=== PATIENT | female | born 1985 | race Caucasian/White ===

== ENCOUNTER 2016-10-20 16:48 | Emergency (ER) | payer OTHER ==
[~2016-10-20] VITALS: Ht 154.9 cm; Wt 76.1 kg
[2016-10-20 16:53] VITALS: TEMP 36.7; Ht 154.9 cm; Wt 76.1 kg
[2016-10-20] MEDS ORDERED: SODIUM CHLORIDE 0.9% 1000ML 1,000 ML IV STA (17:19)
--- NOTE | 2016-10-20 17:30 | EMERGENCY ROOM VISIT NOTE ---
History First contact with patient: 16:58 Chief Complaint: DIZZY Stated Complaint: PAIN IN RIGHT SIDE, LATE PERIOD, DIZZINESS Nursing Triage Summary: pt c/o dizziness. Neg preg at home. referred by PCP History of Present Illness The patient is a 31 year old female who presents to the Emergency Room with complaints of right lower quadrant abdominal pain. The patient states that for the past 6 days, she has had pain in the right lower quadrant radiating into the right upper back. The pain as dull and was intermittent initially, but is now constant. She rates the discomfort a 7/10. Patient states that her menstrual period is 33 days late. She is currently sexually active and does not use protection. She states she is not actively trying to get , but she is aware that without using protection she may get and is okay with this. She has taken multiple urine tests that home which were negative. She states that this morning, she had an episode of dizziness which concerned her. She called her primary care provider who told her to come here. She reports associated nausea, but no vomiting. She denies urinary symptoms, fevers/chills, abnormal vaginal discharge or changes in bowel movements. She reports she was seen by her primary care provider one month ago due to a late period a few months ago. At that time, she was diagnosed with a UTI despite not having any urinary symptoms. She denies any history of late period, ovarian cysts and endometriosis or previous pregnancies. She reports a prior cholecystectomy but no other abdominal surgeries. Review of Systems A complete 10 point review of systems was reviewed with the patient with pertinent positives and negatives as per history of present illness. All else were negative. Social History Smoking Status: Current Every Day Smoker Current/Historical Medications Scheduled Sulfa/Trimethoprim (Bactrim Ds 800MG/160MG), 1 TAB PO BID Allergies Uncoded Allergies: AMOXIL (Allergy, Unknown, hives, 10/20/16) Physical Exam Vital Signs Date Time Temp Pulse Resp B/P (MAP) Pulse Ox O2 Delivery O2 Flow Rate FiO2 10/20/16 21:22 62 18 120/77 98 10/20/16 19:44 58 18 119/78 97 Room Air 10/20/16 18:21 61 18 109/71 98 Room Air 10/20/16 17:31 71 10/20/16 16:53 36.7 76 20 145/90 95 Room Air Physical Exam VITALS: Vitals are noted on the nurse's note and reviewed by myself. Vital signs stable. GENERAL: This is a 31-year-old female, in no acute distress, nondiaphoretic, well-developed well-nourished. HEENT: Normocephalic. PERRLA. Mucous membranes moist. Neck is supple without nuchal rigidity. HEART: Regular rate and rhythm without murmurs gallops or rubs. LUNGS: Clear to auscultation bilaterally without wheezes, rales or rhonchi. ABDOMEN: Positive bowel sounds x 4. Soft, moderate tenderness of the right lower quadrant. No guarding or rebound tenderness. Negative Rovsing sign. NEURO: Patient was alert and oriented to person place and time. Medical Decision & Procedures ER Provider Diagnostic Interpretation: ULTRASOUND OF THE PELVIS IMPRESSION: No acute sonographic abnormality is identified in the pelvis noting nonvisualization of the left ovary. ULTRASOUND OF THE APPENDIX IMPRESSION: Nonvisualization of the appendix. Note that this does not exclude acute appendicitis. CT SCAN OF THE ABDOMEN AND PELVIS WITH IV CONTRAST IMPRESSION: There are no acute infectious or inflammatory findings in the abdomen or pelvis. Laboratory Results 10/20/16 17:30 Red Blood Count 4.82, Mean Corpuscular Volume 83.8, Mean Corpuscular Hemoglobin 29.3, Mean Corpuscular Hemoglobin Concent 34.9, Mean Platelet Volume 9.2, Neutrophils (%) (Auto) 62.7, Lymphocytes (%) (Auto) 29.9, Monocytes (%) (Auto) 6.0, Eosinophils (%) (Auto) 1.0, Basophils (%) (Auto) 0.2, Neutrophils # (Auto) 8.12, Lymphocytes # (Auto) 3.87, Monocytes # (Auto) 0.77, Eosinophils # (Auto) 0.13, Basophils # (Auto) 0.02 10/20/16 17:30 Test 10/20/16 17:02 10/20/16 17:30 Urine Color YELLOW Urine Appearance CLOUDY (CLEAR) Urine pH 6.0 (4.5-7.5) Urine Specific Colbert 1.022 (1.000-1.030) Urine Protein NEG (NEG) Urine Glucose (UA) NEG (NEG) Urine Ketones NEG (NEG) Urine Occult Blood NEG (NEG) Urine Nitrite NEG (NEG) Urine Bilirubin NEG (NEG) Urine Urobilinogen NEG (NEG) Urine Leukocyte Esterase MODERATE (NEG) Urine WBC (Auto) 10-30 /hpf (0-5) Urine RBC (Auto) 0-4 /hpf (0-4) Urine Hyaline Casts (Auto) 1-5 /lpf (0-5) Urine Epithelial Cells (Auto) >30 /lpf (0-5) Urine Bacteria (Auto) 2+ (NEG) Urine Yeast (Auto) (NONE PRSENT) White Blood Count 12.94 K/uL (4.8-10.8) Red Blood Count 4.82 M/uL (4.2-5.4) Hemoglobin 14.1 g/dL (12.0-16.0) Hematocrit 40.4 % (37-47) Mean Corpuscular Volume 83.8 fL (80-100) Mean Corpuscular Hemoglobin 29.3 pg (25-34) Mean Corpuscular Hemoglobin Concent 34.9 g/dl (32-36) Platelet Count 398 K/uL (130-400) Mean Platelet Volume 9.2 fL (7.4-10.4) Neutrophils (%) (Auto) 62.7 % Lymphocytes (%) (Auto) 29.9 % Monocytes (%) (Auto) 6.0 % Eosinophils (%) (Auto) 1.0 % Basophils (%) (Auto) 0.2 % Neutrophils # (Auto) 8.12 K/uL (1.4-6.5) Lymphocytes # (Auto) 3.87 K/uL (1.2-3.4) Monocytes # (Auto) 0.77 K/uL (0.11-0.59) Eosinophils # (Auto) 0.13 K/uL (0-0.5) Basophils # (Auto) 0.02 K/uL (0-0.2) RDW Standard Deviation 41.9 fL (36.4-46.3) RDW Coefficient of Variation 13.6 % (11.5-14.5) Immature Granulocyte % (Auto) 0.2 % Immature Granulocyte # (Auto) 0.03 K/uL (0.00-0.02) Anion Gap 8.0 mmol/L (3-11) Est Creatinine Clear Calc Drug Dose 110.6 ml/min Estimated GFR () 135.7 Estimated GFR (Non- 117.1 BUN/Creatinine Ratio 14.0 (10-20) Calcium Level 8.9 mg/dl (8.5-10.1) Total Bilirubin 0.3 mg/dl (0.2-1) Aspartate Amino Transf (AST/SGOT) 14 U/L (15-37) Alanine Aminotransferase (ALT/SGPT) 17 U/L (12-78) Alkaline Phosphatase 107 U/L (45-117) Total Protein 7.3 gm/dl (6.4-8.2) Albumin 3.6 gm/dl (3.4-5.0) Globulin 3.7 gm/dl (2.5-4.0) Albumin/Globulin Ratio 1.0 (0.9-2) Lipase 69 U/L (73-393) Human Chorionic Gonadotropin, Qual NEG (NEG) Date/Time Source Procedure Growth Status 10/20/16 17:02 Urine , Clean Catch Urine Culture - Final MORE THAN THREE TYPES OF ORGANISMS FL... Complete Medications Administered Medications (Trade) Dose Ordered Sig/Tameka Route Start Time Stop Time Status Last Admin Dose Admin Sodium Chloride 1,000 ml @ 999 mls/hr Q1H1M STAT IV 10/20/16 17:19 10/20/16 18:19 DC 10/20/16 17:30 999 MLS/HR Trimethoprim/ Sulfamethoxazole (Septra Ds 800/ 160MG Tab) 1 tab NOW STAT PO 10/20/16 21:06 10/20/16 21:07 DC 10/20/16 21:19 1 TAB Medical Decision Differential diagnosis includes ovarian cyst, ovarian torsion, appendicitis, urinary tract infection, kidney stone, pyelonephritis, among others. The patient is a 31-year-old female who presents today complaining of right lower quadrant abdominal pain. Labs revealed a mild leukocytosis. No concerning or electrolyte abnormalities. Ultrasound of the pelvis was unremarkable. Ultrasound of the appendix is not able to identify the appendix. Due to the patient's leukocytosis and right lower quadrant pain without obvious cause, I did recommend a CT scan. This was performed and showed no acute findings within the abdomen and pelvis. Urinalysis was suggestive of possible infection and the patient will be treated with Bactrim given her discomfort. She was recommended to follow-up with her primary care provider and may need a pelvic exam, although she has no symptoms of infection at this time. She was encouraged to return here if she has any worsening symptoms. She verbalized understanding of my assessment and treatment plan and was discharged home in good condition. The patient's case was reviewed with Dr. Banks, ED attending physician, who agreed with my assessment and treatment plan. Medication reconciliation: I attest that I have personally reviewed the patient 's current medication list. Blood pressure screening: Patient was found to have normal blood pressure on screening and does not require follow-up. Impression Primary Impression: RLQ abdominal pain Departure Information Dispostion Home / Self-Care Condition GOOD Prescriptions Sulfa/Trimethoprim (Bactrim Ds 800MG/160MG) Tab 1 TAB PO BID for 7 Days, #14 TAB Prov: Juliana Castillo .ELISE 10/20/16 Referrals Korina Velazquez PA-C (PCP) Patient Instructions My [facility] Additional Instructions You have been treated in the Emergency Department for your Abdominal Pain. Laboratory results and imaging studies have ruled out any emergent causes for your abdominal pain which would warrant admission or surgery. Bactrim as prescribed for a total of 7 days. For pain control, you can use the following [id number]-zvo-wajsdlc medicines (if >12 yo): - Regular strength (325mg/tab) Tylenol (acetaminophen) 2 tabs every 4-6 hours as needed. Do not exceed 12 tablets in a 24 hour period. Avoid taking more than 4 grams (4000 mg) of Tylenol per day. This includes any other sources of acetaminophen you may take on a regular basis. - Regular strength (200 mg/tab) Advil (ibuprofen) 1-2 tabs every 4-6 hours as needed. Do not exceed a dose of 3200 mg per day. Drink plenty of water and stay well hydrated. As with any trip to the Emergency Department, you should follow-up with your Primary Care Provider from today's visit. Return to the emergency department if your symptoms persist despite treatment plan outlined above or if the following symptoms occur: Worsening pain, vomiting , fevers, or any other new/concerning symptoms.
[2016-10-20 17:43] LABS: BASO % 0.2 %; BASO ABS # 0.02 K/uL (0-0.2); COMPLETE YES; HEMATOCRIT 40.4 % (37-47); IG% 0.2 %; LYMPH % 29.9 %; LYMPH ABS # 3.87 K/uL (1.2-3.4); MEAN CELL VOLUME 83.8 fL (80-100); MEAN CORPUSCULAR HEMOGLOBIN 29.3 pg (25-34); MEAN CORPUSCULAR HGB CONC 34.9 g/dl (32-36); MEAN PLATELET VOLUME 9.2 fL (7.4-10.4); NEUT % 62.7 %; PLATELET COUNT 398 K/uL (130-400); RED BLOOD COUNT 4.82 M/uL (4.2-5.4); WHITE BLOOD COUNT 12.94 K/uL (4.8-10.8)
[2016-10-20 17:50] LABS: URINE APPEARANCE CLOUDY (CLEAR); URINE BILIRUBIN NEG (NEG); URINE COLOR YELLOW; URINE EPITHELIAL CELL AUTO >30 /lpf (0-5); URINE NITRITE NEG (NEG); URINE SPECIFIC GRAVITY 1.022 (1.000-1.030); UROBILINOGEN NEG (NEG); ZZUR CULT IF INDIC CLEAN CATCH YES
[2016-10-20 17:51] LABS: MANUAL MICROSCOPIC REQUIRED? NO; REVIEW REQ? YES
[2016-10-20 18:01] LABS: CALCIUM 8.9 mg/dl (8.5-10.1); CREATININE 0.7 mg/dl (0.60-1.20); POTASSIUM 3.8 mmol/L (3.5-5.1)
[2016-10-20 18:34] LABS: PREG INTERNAL NEGATIVE QC NEG CLEAR BACKGROUND; PREG INTERNAL POSITIVE QC POS CONTROL LINE
--- NOTE | 2016-10-20 19:43 | DIAGNOSTIC IMAGING REPORT ---
ULTRASOUND OF THE APPENDIX CLINICAL HISTORY: Nausea. Right lower quadrant abdominal pain. COMPARISON STUDY: No priors. FINDINGS: Real-time, grayscale, and color flow sonography of the right lower quadrant was performed to assess for acute appendicitis. The appendix was not discretely visualized. No inflammatory changes or free fluid are seen in the right lower quadrant. No lymphadenopathy was seen. IMPRESSION: Nonvisualization of the appendix. Note that this does not exclude acute appendicitis. Electronically signed by: Kenny Ramirez M.D. 10/20/2016 7:42 PM Dictated Date/Time: 10/20/2016 7:42 PM
--- NOTE | 2016-10-20 19:48 | DIAGNOSTIC IMAGING REPORT ---
ULTRASOUND OF THE PELVIS CLINICAL HISTORY: Right pelvic pain. COMPARISON STUDY: No priors. TECHNIQUE: Real-time, grayscale, and color flow sonography of the pelvis is performed both transabdominally and endovaginally. Images are reviewed in the transverse and longitudinal planes. FINDINGS: Uterus: The uterus is normal in size and echotexture, measuring 6.4 x 2.7 x 3.4 cm. Endometrium: The endometrium is normal in appearance, and the endometrial stripe is normal in thickness measuring up to 0.4 cm. Ovaries: The right ovary is normal in size and morphology, measuring 2.8 x 1.7 x 2.0 cm. There are small right ovarian follicles. The left ovary was not visualized. Normal Doppler waveforms are shown within the right ovary. Pelvis: There is no free fluid in the cul-de-sac. No concerning adnexal lesion is seen. IMPRESSION: No acute sonographic abnormality is identified in the pelvis noting nonvisualization of the left ovary. Electronically signed by: Kenny Ramirez M.D. 10/20/2016 7:47 PM Dictated Date/Time: 10/20/2016 7:45 PM
[2016-10-20] MEDS ORDERED: OPTIRAY 320 IV PRN (20:00)
--- NOTE | 2016-10-20 20:41 | DIAGNOSTIC IMAGING REPORT ---
CT SCAN OF THE ABDOMEN AND PELVIS WITH IV CONTRAST CLINICAL HISTORY: Right lower quadrant abdominal pain. Nausea. COMPARISON STUDY: Pelvic ultrasound dated 10/20/2016. TECHNIQUE: Following the IV administration of 92 cc of Optiray 320, CT scan of the abdomen and pelvis is performed from the lung bases to the proximal femora. Images are reviewed in the axial, sagittal, and coronal planes. IV contrast was administered without complication. Automated dose control exposure was utilized. A dose lowering technique was utilized adhering to the principles of ALARA. CT DOSE: 427.10 mGy.cm FINDINGS: Lung bases: The heart is normal in size and without pericardial effusion. The lung bases are clear noting dependent atelectasis. Liver: The contrast-enhanced liver is normal in size, contour, and attenuation. There is no intrahepatic biliary ductal dilatation. The hepatic veins and portal veins are patent. Gallbladder: Surgically absent noting clips in the gallbladder fossa. Spleen: Normal in size and attenuation. Pancreas: Unremarkable. Adrenal glands: Unremarkable. Kidneys: The contrast enhanced kidneys are normal in size and without hydronephrosis. The kidneys enhance symmetrically. Abdominal vasculature: The abdominal aorta is normal in course and caliber. Bowel: The small bowel and colon are normal in course and caliber. The appendix is well-visualized and normal. Peritoneum: There is no intraperitoneal free air or abdominal ascites. There is a small fat-containing umbilical hernia. Lymphadenopathy: None. Pelvic viscera: The bladder, uterus, and adnexa are normal as visualized noting small ovarian follicles. Skeletal structures: No lytic or blastic lesions are seen. IMPRESSION: There are no acute infectious or inflammatory findings in the abdomen or pelvis. Electronically signed by: Kenny Ramirez M.D. 10/20/2016 8:40 PM Dictated Date/Time: 10/20/2016 8:30 PM
[2016-10-20] MEDS ORDERED: SULFAMETHOXAZOLE/TRIMETHOPRIM DS 800/160MG TAB PO STA (21:06)
[2016-10-20] MEDS ORDERED: SULF800T23 PO (21:11)
[2016-10-20 21:22] VITALS: BP 120/77; PULSE 62; O2SAT 98
== END 2016-10-20 21:22 | disposition home or self-care (01) ==
LOC: C.EDB 16:53
DX: R10.31 Right lower quadrant pain (principal); F17.200 Nicotine dependence, unspecified, uncomplicated; Z88.1 Allergy status to other antibiotic agents

== ENCOUNTER → 2017-07-19 | Outpatient (CLI) | payer OTHER ==
[2017-07-19 14:46] LABS: BASO % 0.2 %; BASO ABS # 0.03 K/uL (0-0.2); EOS % 0.8 %; HEMATOCRIT 39.3 % (37-47); HEMOGLOBIN 13.5 g/dL (12.0-16.0); IG# 0.03 K/uL (0.00-0.02); LYMPH ABS # 3.01 K/uL (1.2-3.4); MEAN CELL VOLUME 82.9 fL (80-100); MEAN CORPUSCULAR HEMOGLOBIN 28.5 pg (25-34); MEAN CORPUSCULAR HGB CONC 34.4 g/dl (32-36); MEAN PLATELET VOLUME 9.1 fL (7.4-10.4); MONO % 6.1 %; NEUT % 69.7 %; NEUT ABS # 9.09 K/uL (1.4-6.5); PLATELET COUNT 484 K/uL (130-400); RED CELL DISTRIBUTION WIDTH CV 14.4 % (11.5-14.5); RED CELL DISTRIBUTION WIDTH SD 43.9 fL (36.4-46.3); WHITE BLOOD COUNT 13.06 K/uL (4.8-10.8)
[2017-07-19 15:00] LABS: ALBUMIN 3.7 gm/dl (3.4-5.0); ALKALINE PHOSPHATASE 89 U/L (45-117); ALT/SGPT 20 U/L (12-78); AST/SGOT 14 U/L (15-37); BLOOD UREA NITROGEN 5 mg/dl (7-18); CARBON DIOXIDE 22 mmol/L (21-32); CREATININE 0.73 mg/dl (0.60-1.20); GLUCOSE 78 mg/dl (70-99); POTASSIUM 3.8 mmol/L (3.5-5.1); SODIUM 136 mmol/L (136-145); TOTAL PROTEIN 7.8 gm/dl (6.4-8.2)
== END | disposition home or self-care (01) ==
LOC: C.LAB1850 13:07
PROVIDERS: ATTEND Obstetrics & Gynecology
DX: O10.911 Unspecified pre-existing hypertension complicating pregnancy, first trimester (principal); Z3A.00 Weeks of gestation of pregnancy not specified

== ENCOUNTER → 2017-09-30 | Outpatient (CLI) | payer OTHER | END | disposition home or self-care (01) | LOC: C.LAB1850 16:58 | PROVIDERS: ATTEND Obstetrics & Gynecology | DX: Z34.02 Encounter for supervision of normal first pregnancy, second trimester (principal); R39.9 Unspecified symptoms and signs involving the genitourinary system; Z3A.00 Weeks of gestation of pregnancy not specified ==

== ENCOUNTER 2018-03-07 18:32 | Inpatient (IN) ==
[~2018-03-07 18:32] MED LIST: CEFAZOLIN 2,000 MG in SYRINGE 0 ML IV SCH
[2018-03-07] MEDS ORDERED: CITRIC ACID/SODIUM CITRATE 15 ML UDC PO SCH (19:00)
[2018-03-07] MEDS ORDERED: LACTATED RINGER'S 1,000 ML IV SCH ×2 (19:00→19:46)
--- NOTE | 2018-03-07 19:00 | History & Physical Report ---
Date of Service March 07, 2018 Assessment & Plan (1) with 38 completed weeks gestation: category one strip (2) Breech presentation: Plan c/s. r/b/se discussed including anesthesia, bleeding, transfusion, infection, poor wound healing, damage to surrounding structures, need for further surgery, heart attack, blood clot, stroke, injury to baby . Consent reviewed and signed. (3) Rupture of membranes with clear amniotic fluid: History of Present Illness Chief Complaint: leaking fluid Primary Care Provider: Korina Velazquez PA-C Patient is a 32yowf with iup at 38 6/7 weeks who was discovered to be breech at office visit, declined version. Patient notes onset of gross rom this evening. clear fluid. Has had some intermittent contractions today. No VB. labs--O+/ab-/ri/rprnr/hepb neg/hiv neg/gc/ct-/ gtt x2 nl/panorama nl/gbs neg Allergies Allergy/AdvReac Type Severity Reaction Status Date / Time AMOXIL Allergy Unknown hives Uncoded 03/02/18 13:58 Home Medications Home Medications Medication Instructions Recorded Confirmed Type PNV cmb#95-ferrous fumarate-FA 1 tab PO QAM 03/02/18 03/02/18 History [] ranitidine HCl [Zantac] 150 mg PO HS 03/02/18 03/02/18 History Patient History Medical History Anxiety Hypertension affecting GERD (gastroesophageal reflux disease) Surgical History History of cholecystectomy History of tooth extraction WISDOM TEETH EXTRACTION Social History Current Living Situation: Spouse Feels Safe at Home: Yes Smoking Status: Former smoker Tobacco Type: cigarettes Cigarettes per Day: QUIT 9 MONTHS, 1 PACK PER 4 DAYS Second Hand Exposure: No Hx Alcohol Use: No Hx Substance Use: No Beliefs That Will Affect Care: None Preferred Language: Hungarian Communication Ability: Effective OB History g1--current ACTIVITY MANAGER History none Review of Systems All systems reviewed & are unremarkable except as noted in HPI & below Physical Exam 2 Constitutional: WD/WN, vitals as above Gastrointestinal (Abdomen): soft, gravid , nt Genitourinary: sse--grossly ruptured, visually 1-2cm toco--q5min efm--140s with mod variability, accels present, no decels US--breech
[2018-03-07 19:13] LABS: Basophils # (auto) 0.02 K/uL (0-0.2); Basophils % (auto) 0.1 %; Eosinophils # (auto) 0.12 K/uL (0-0.5); Eosinophils % (auto) 0.9 %; Hematocrit (blood only) 36.8 % (37-47); Hemoglobin 12.4 g/dL (12.0-16.0); Immature Granulocytes # (auto) 0.03 K/uL (0.00-0.02); Immature Granulocytes % (auto) 0.2 %; Lymphocytes # (auto) 3.29 K/uL (1.2-3.4); Lymphocytes % (auto) 24.2 %; Mean Corpuscular Volume 83.8 fL (80-100); Mean Platelet Volume 9.6 fL (7.4-10.4); Monocytes # (auto) 0.92 K/uL (0.11-0.59); Monocytes % (auto) 6.8 %; Neutrophils # (auto) 9.23 K/uL (1.4-6.5); Neutrophils % (auto) 67.8 %; Platelet Count 482 K/uL (130-400); RDW Coefficient of Variation 14.6 % (11.5-14.5); RDW Standard Deviation 45.3 fL (36.4-46.3); Red Blood Count 4.39 M/uL (4.2-5.4); White Blood Count 13.61 K/uL (4.8-10.8)
--- NOTE | 2018-03-07 19:16 | Anesthesiology Consultation ---
Date of Service March 07, 2018 Assessment & Plan (1) Encounter for pre-operative examination: Chart Review Chart Review: Acceptable Risk for Surgery and Patient NOT seen in Pre Admission Testing Consults Requested none ASA ASA2 Proposed Anesthesia Anesthesia Type: Spinal Risk / Benefits Reviewed With: PT / POA / Parent / Guardian, Accepts Plan and Informed Consent Obtained NPO Date Last Intake of Fluids: 03/07/18 Time Last Intake of Fluids: 17:30 Date Last Intake of Solids: 03/07/18 Time Last Intake of Solids: 17:30 History Surgery Operation Date: 03/07/18 20:00 Proposed Procedures p Section in LD - Erika Hunt MD, FACOG Height/Weight Height: 5 ft 1 in Weight: 89.811 kg Allergies Allergy/AdvReac Type Severity Reaction Status Date / Time amoxicillin Allergy Hives Verified 03/07/18 19:10 Medications Home Medications Medication Instructions Recorded Confirmed Last Taken PNV cmb#95-ferrous fumarate-FA 1 tab PO QAM 03/02/18 03/02/18 Unknown [] ranitidine HCl [Zantac] 150 mg PO HS 03/02/18 03/02/18 Unknown Past Medical History Medical History Anxiety Hypertension affecting GERD (gastroesophageal reflux disease) Past Surgical History Surgical History History of cholecystectomy History of tooth extraction WISDOM TEETH EXTRACTION Past Anesthesia History No Hx of Anesthesia Complications History of PONV No Motion Sickness Screening History of Motion Sickness: No Social History Smoking Status: Former smoker tobacco type: cigarettes Smoking cigarettes per day: QUIT 9 MONTHS, 1 PACK PER 4 DAYS Hx Alcohol Use: No Hx Substance Use: No substance use type: does not use Exercise / Class Metabolic Activity II 4-5 Yardwork/Stairs/Walk up hill Negative for chest pain or shortness of breath. Positive for symptoms of active GERD. Physical Exam Constitutional not obese (Gravid uterus) ENMT Mouth: no TMJ abnormality and oral opening not small Thyromental Distance: > or= 3.5 Finger Breadths Mallampati Class: II Neck normal visual inspection; neck extension not limited Respiratory normal respiratory effort Auscultation: lungs clear to auscultation bilaterally Cardiovascular Rate/Rhythm: regular rate and regular rhythm Heart Sounds: no murmur Psychiatric Orientation: alert and oriented x 3
[2018-03-07 19:20] LABS: Mean Corpuscular Hgb Conc 33.7 g/dL (32-36)
[2018-03-07] MEDS ORDERED: fentaNYL citrate 100 MCG/2 ML VIAL ONE (19:30)
[2018-03-07] MEDS ORDERED: MoRPHine SULFATE PF 1 MG/ML 10 ML AMP/VIAL ONE (19:30)
[2018-03-07] MEDS ORDERED: OXYTOCIN 10 UNITS/ML VIAL ONE ×2 (19:38→20:23)
[2018-03-07] MEDS ORDERED: ONDANSETRON INJ 2 MG/ML 2 ML VIAL ONE (19:38)
[2018-03-07] MEDS ORDERED: KETOROLAC 30 MG/ML VIAL ONE (20:23)
--- NOTE | 2018-03-07 20:38 | Post Operative Brief Note ---
Immediate Post Op Note v1 Date of Surgery March 07, 2018 Pre & Post Diagnosis Operation Date: 03/07/18 20:00 Pre-Op Diagnosis: IUP at 38.6 weeks Breech presentation Rupture of membranes Post-Op Diagnosis: Same as pre op Delivery of live female child at 2011 Lower uterine transverse incision Procedure Operation Date: 03/07/18 20:00 Actual Procedures p Section in LD - Erika Hunt MD, FACOG Surgeon Erika Hunt MD, FACOG Bat Carrier Dr. Vargas Estimated Blood Loss 500 Findings Consistent with Post-Op Diagnosis Drains Mejias Catheter
[2018-03-07 20:48] LABS: Cord Venous Blood HCO3 26 mmol/L (18.4-26.8); Cord Venous Blood PCO2 49 mmHg (30.4-57.2); Cord Venous Blood PO2 17 mmHg (14.1-43.3); Cord Venous Blood pH 7.34 (7.20-7.44)
[2018-03-07 20:54] LABS: Base Excess Cord Arterial Bld -0.3 mEq/L (-9-1.8); CO2 Cord Arterial Blood 57 mmHg (39.1-73.5); HCO3 Cord Arterial Blood 28 mmol/L (19.7-28.5)
[2018-03-07 20:55] LABS: O2 Saturation Cord Venous Bld < 60.0 % (<68)
[2018-03-07] MEDS ORDERED: DiphenhydrAMINE HCL 50 MG/ML VIAL ONE (20:57)
[2018-03-07] MEDS ORDERED: NALOXONE HCL 0.4 MG/1 ML VIAL/CARP IV PRN (21:00)
[2018-03-07] MEDS ORDERED: ONDANSETRON INJ 2 MG/ML 2 ML VIAL IV PRN (21:00)
[2018-03-07] MEDS ORDERED: HYDROmorphone INJ 0.5 MG/0.5 ML SYR IV PRN (21:00)
[2018-03-07] MEDS ORDERED: SODIUM CHLORIDE 0.9% 1000ML 1,000 ML IV SCH (21:00)
[2018-03-07] MEDS ORDERED: DiphenhydrAMINE HCL 50 MG/ML VIAL IV PRN (21:00)
[2018-03-07] MEDS ORDERED: ePHEDrine sulfate 50 MG/ML AMP IV PRN (21:00)
[2018-03-07] MEDS ORDERED: NALBUPHINE HCL INJ 10 MG/ML AMP IV PRN (21:00)
[2018-03-07] MEDS ORDERED: NO NARCOTICS OR SEDATIVES SCH (21:00)
[2018-03-07] MEDS ORDERED: NALOXONE HCL 1 MG in SODIUM CHLORIDE 0.9% 1000ML 1,000 ML IV PRN (21:00)
[2018-03-07] MEDS ORDERED: MoRPHine SULFATE PF 1 MG/ML 10 ML AMP/VIAL INT SPINAL ONE (21:00)
[2018-03-07] MEDS ORDERED: LACTATED RINGER'S 500 ML IV PRN (21:00)
[2018-03-07] MEDS ORDERED: DC INTRASPINAL MORPHINE SCH (21:00)
[2018-03-07] MEDS ORDERED: NALOXONE HCL 0.08 MG in SYRINGE 1.8 ML IV PRN (21:00)
--- NOTE | 2018-03-07 21:49 | Anesthesiology Progress Note ---
Date of Service March 07, 2018 Anesthesia Post Procedure Vital Signs Vital Signs: Temp Pulse Resp BP Pulse Ox 03/07/18 21:45 82 96 03/07/18 21:40 89 92 03/07/18 21:39 79 138/89 03/07/18 21:35 77 98 03/07/18 21:30 84 100 03/07/18 21:29 94 H 18 154/90 H 03/07/18 21:26 97 H 86 L 03/07/18 21:25 94 H 90 03/07/18 21:22 91 H 18 145/80 H 03/07/18 21:21 89 86 L 03/07/18 21:20 89 88 L 03/07/18 21:15 74 98 03/07/18 21:10 74 18 135/60 99 03/07/18 21:05 88 98 03/07/18 21:02 82 87 L 03/07/18 21:01 78 18 135/64 03/07/18 21:00 83 100 03/07/18 20:57 83 85 L 03/07/18 20:55 82 97 03/07/18 20:51 82 92 03/07/18 20:50 84 99 03/07/18 20:48 36.3 C L 79 18 127/74 03/07/18 19:21 36.8 C 80 16 134/91 Notes Mental Status: alert / awake / arousable and participated in evaluation Nausea / Vomiting: adequately controlled Pain: adequately controlled Airway Patency, RR, SpO2: stable & adequate BP & HR: stable & adequate Hydration State: stable & adequate Neuraxial Anesthesia: was administered and sensory block is resolving Anesthetic Complications: no major complications apparent
[2018-03-07] MEDS ORDERED: ACETAMINOPHEN 1,000 MG/100 ML VIAL IV SCH (22:00)
[2018-03-07] MEDS ORDERED: PROMETHAZINE HCL 25 MG in SODIUM CHLORIDE 0.9% 50 ML IV PRN (22:55)
[2018-03-07] MEDS ORDERED: HYDROCORTISONE ACETATE 25 MG SUPP PR PRN (22:55)
[2018-03-07] MEDS ORDERED: MAGNESIUM HYDROXIDE SUSP 30 ML UDC PO PRN (22:55)
[2018-03-07] MEDS ORDERED: SUPERCREAM 0.870% 15 GM JAR EXT PRN (22:55)
[2018-03-07] MEDS ORDERED: DIPHTHERIA/TETANUS/PERTUSSIS 0.5 ML SYR/VIAL IM ONE (22:55)
[2018-03-07] MEDS ORDERED: SENNA 8.6 MG TAB PO PRN (22:55)
[2018-03-07] MEDS ORDERED: BENZOCAINE 20% AER SPR 82.5 GM CAN EXT PRN (22:55)
[2018-03-07] MEDS ORDERED: OXYTOCIN 20 UNITS in LACTATED RINGER'S 1,000 ML IV SCH (22:55)
--- NOTE | 2018-03-08 01:17 | Operative Report ---
DATE OF OPERATION: 03/07/2018 PREOPERATIVE DIAGNOSES: 1. Intrauterine at 38 and 6/7 weeks. 2. Spontaneous rupture of membranes. 3. Breech presentation. POSTOPERATIVE DIAGNOSES: 1. Intrauterine at 38 and 6/7 weeks. 2. Spontaneous rupture of membranes. 3. Breech presentation. PROCEDURE: Primary lower transverse section. SURGEON: Erika Hunt MD NATURAL FABRICATOR: Cheri Vargas MD ANESTHESIA: Spinal. ESTIMATED BLOOD LOSS: 500 mL FLUIDS: 1300 mL URINE OUTPUT: 300 mL clear yellow urine draining from the bladder at the end of procedures. INDICATIONS: The patient is a 1, para 0 with a known breech presentation, scheduled for section on 03/10/2018 who presents grossly ruptured and persistent breech presentation. FINDINGS: Sacrum anterior eduarda breech presentation, Apgars pending. Normal uterus, tubes, and ovaries were noted bilaterally. COMPLICATIONS: None. DRAINS: Mejias. DISPOSITION: To recovery room in stable condition. DESCRIPTION OF PROCEDURE: The patient was taken to the operating room where she was identified verbally and by bracelet. She was seated on the operating table, where spinal anesthetic was placed. She was then placed in dorsal supine position with a leftward tilt. Mejias catheter was placed. She was prepped and draped in normal sterile fashion. Anesthetic was tested and found to be adequate. Time-out was held, identifying correct patient and procedure, positioning, preoperative antibiotics. There were no concerns. A Pfannenstiel skin incision was made with a knife, taken down to the underlying layer of fascia with the knife. Bleeding was attended to with Bovie electrocautery. The fascia was incised with cautery and taken out laterally with scissors. The superior edge of the fascial incision was grasped, elevated, and the underlying layer of rectus muscle was taken off bluntly and with scissors. In a similar fashion, the inferior edge of the fascial incision was grasped, elevated and the underlying layer of rectus muscle was taken off bluntly and with scissors. The muscles were bluntly in the midline. The peritoneum was entered bluntly. It was taken superiorly and inferiorly with good visualization of the bladder using scissors and the incision was stretched, the bladder blade was placed. The vesicouterine peritoneum was grasped with a snap, entered with scissors, taken out laterally with scissors and the bladder flap was created digitally. The bladder blade was replaced. Hysterotomy incision was scored with a knife. The uterus was entered with a snap and the incision was stretched with the shrimp peeling machine operator's fingers. A female genitalia were noted in the incision, confirming eduarda breech presentation, sacrum posterior. An shrimp peeling machine operator's hand was reached into the uterus about buttocks, where elevated atraumatically into the uterine incision using fundal pressure, the breech was delivered. The legs were delivered. The fetus was rotated the left and right arm were swept and the head was delivered using fundal pressure and Uulcocdpa-[id number]-Jcfq maneuver. The was placed on the operating field. The nose and mouth were bulb suctioned. The cord was clamped and cut. The infant was taken off to waiting pediatricians for drying and attention. Cord blood and segment were obtained. Placenta was manually extracted. The uterus was exteriorized and cleared of all clot and debris with moistened laparotomy sponges. The hysterotomy incision was repaired in 2 layers, the first in a running locked layer, the second in an imbricating layer of 0 Vicryl. The posterior cul-de-sac was then irrigated and cleared of all clot and debris. The hysterotomy incision was again inspected and found to be hemostatic. The uterus was reanteriorized. The hysterotomy incision was inspected again and oozing area on the right was attended to with a [id number]-he-zoqmb suture and then hemostasis was noted to be excellent. The muscles were reapproximated in the midline using interrupted stitches of 0 Vicryl. The fascia was reapproximated starting in the corners and meeting in the midline. Subcuticular tissue was copiously irrigated with warm normal saline and the skin was closed with subcuticular stitch of 4-0 Vicryl. All sponge, lap, needle counts were correct x2. The patient tolerated the procedure well and was taken to recovery room in stable condition. I attest to the content of the Intraoperative Record and any orders documented therein. Any exception s are noted below.
[2018-03-08] MEDS: KETOROLAC 30 MG/ML VIAL IV PRN ×3 (02:57→17:33)
[2018-03-08] MEDS: LACTATED RINGER'S 1,000 ML IV SCH ×2 (08:06→16:49)
[2018-03-08] MEDS: PRENATAL VITAMIN 1 TAB PO SCH (08:09)
[2018-03-08] MEDS: DOCUSATE SODIUM 100 MG CAP PO SCH ×2 (08:09→20:59)
--- NOTE | 2018-03-08 08:48 | Obstetrical Progress Note ---
Date of Service <Hay Ball - Last Filed: 03/08/18 08:48> March 08, 2018 Assessment & Plan <Hay Ball - Last Filed: 03/08/18 08:48> (1) delivery delivered: 32 y/o, , C/S at 38.6 weeks, O+, GBS- - POD#1 - Continue routine post- care - remove michelle this morning - advance diet as tolerated - monitor and manage pain - continue with SVDs while in bed, encourage ambulation (2) with 38 completed weeks gestation: Day #:: 1 Subjective <Hay Ball - Last Filed: 03/08/18 08:48> Voiding: michelle catheter in place Passing Gas:: Yes Diet Tolerance:: clear liquids Feeding Type:: breast feeding Current Pain Level(1-10): 4 Junito states she is doing well this morning. Her michelle cath is still in place. She is tolerating clear liquid diet without difficulty. She denies fevers, chills, shortness of breath, chest pain, nausea, vomiting. Her pain is improved with analgesics. Physical Exam <Hay Ball - Last Filed: 03/08/18 08:48> Vital Signs (Past 24 Hours) Last Vital Signs Temp 37.0 C 03/08/18 07:42 Pulse 83 03/08/18 07:42 Resp 20 03/08/18 07:42 BP 122/78 03/08/18 07:42 Pulse Ox 99 03/08/18 07:42 Constitutional WD/WN, vitals as above Respiratory normal respiratory effort, lungs clear to auscultation Cardiovascular Rate/Rhythm: regular rate and regular rhythm Heart Sounds: no murmur Gastrointestinal (Abdomen) Percussion/Palpation: abdomen soft; abdomen nontender fundus is firm, non-tender, 2cm below umbilicus. Surgical incision is dry, clean, intact without signs of infection. Neurologic moves all extremities and awake Psychiatric A+Ox3, euthymic affect Results & Data <Hay BallDO - Last Filed: 03/08/18 08:48> Laboratory Results Laboratory Results - last 24 hr 03/07/18 03/07/18 03/07/18 19:05 19:05 20:12 WBC 13.61 H RBC 4.39 Hgb 12.4 Hct 36.8 L MCV 83.8 MCH 28.2 MCHC 33.7 RDW Std Deviation 45.3 RDW Coeff of Darrell 14.6 H Plt Count 482 H MPV 9.6 Immature Gran % (Auto) 0.2 Neut % (Auto) 67.8 Lymph % (Auto) 24.2 [place] % (Auto) 6.8 Eos % (Auto) 0.9 Baso % (Auto) 0.1 Immature Gran # (Auto) 0.03 H Neut # (Auto) 9.23 H Lymph # (Auto) 3.29 [place] # (Auto) 0.92 H Eos # (Auto) 0.12 Baso # (Auto) 0.02 Cord ABG pH 7.30 Cord ABG pCO2 57 Cord ABG pO2 17.0 Cord ABG HCO3 28 Cord ABG Base Excess -0.3 Cord ABG O2 Sat < 60.0 Cord VBG pH Cord VBG pCO2 Cord VBG pO2 Cord VBG HCO3 Cord VBG Base Excess Cord VBG O2 Sat Barometric Pressure 725.0 Blood Gas Comments RODRIGUEZ Blood Type O Positive 03/07/18 20:12 WBC RBC Hgb Hct MCV MCH MCHC RDW Std Deviation RDW Coeff of Darrell Plt Count MPV Immature Gran % (Auto) Neut % (Auto) Lymph % (Auto) [place] % (Auto) Eos % (Auto) Baso % (Auto) Immature Gran # (Auto) Neut # (Auto) Lymph # (Auto) [place] # (Auto) Eos # (Auto) Baso # (Auto) Cord ABG pH Cord ABG pCO2 Cord ABG pO2 Cord ABG HCO3 Cord ABG Base Excess Cord ABG O2 Sat Cord VBG pH 7.34 Cord VBG pCO2 49 Cord VBG pO2 17 Cord VBG HCO3 26 Cord VBG Base Excess -1.0 Cord VBG O2 Sat < 60.0 Barometric Pressure 724.5 Blood Gas Comments RODRIGUEZ Blood Type Medications Administered Docusate Sodium (Colace) 100 mg PO BID [facility] Stop: 04/06/18 22:54 Last Admin: 03/08/18 08:09 Dose: 100 mg Lactated Ringer's (Lr) 1,000 mls @ 125 mls/hr IV .Q8H NEHEMIAH Stop: 04/06/18 22:54 Last Admin: 03/08/18 08:06 Dose: 125 mls/hr Ketorolac Tromethamine (Toradol) 30 mg IV Q6H PRN PRN Reason: Breakthrough Surgical Pain Stop: 03/08/18 20:59 Last Admin: 03/08/18 02:57 Dose: 30 mg Prenat Multivit/Nuclear Weapons Specialist/Iron/Folic Ac ( Vitamin) 1 tab PO QAM NEHEMIAH Stop: 04/07/18 08:59 Last Admin: 03/08/18 08:09 Dose: 1 tab <Erika Hunt MD, FACOG - Last Filed: 03/08/18 08:53> Co-Signing Physician Notes Resident Physician Supervision Note: I interviewed and examined the patient. Discussed with Dr. Ball and agree with findings and plan as documented in the note. Any exceptions or clarifications are listed here: Doing well. Routine care. Documented By: Erika Hunt MD, FACOG
[2018-03-08] MEDS: FERROUS SULFATE 325 MG TAB PO SCH (08:56)
[2018-03-08 08:57] LABS: Basophils # (auto) 0.02 K/uL (0-0.2); Basophils % (auto) 0.1 %; Eosinophils # (auto) 0.11 K/uL (0-0.5); Eosinophils % (auto) 0.7 %; Hematocrit (blood only) 33.7 % (37-47); Hemoglobin 11.1 g/dL (12.0-16.0); Immature Granulocytes # (auto) 0.04 K/uL (0.00-0.02); Immature Granulocytes % (auto) 0.3 %; Lymphocytes # (auto) 2.39 K/uL (1.2-3.4); Lymphocytes % (auto) 15.4 %; Mean Corpuscular Hgb Conc 32.9 g/dL (32-36); Mean Corpuscular Volume 84.3 fL (80-100); Mean Platelet Volume 9.4 fL (7.4-10.4); Monocytes # (auto) 0.99 K/uL (0.11-0.59); Monocytes % (auto) 6.4 %; Neutrophils # (auto) 11.93 K/uL (1.4-6.5); Neutrophils % (auto) 77.1 %; Platelet Count 412 K/uL (130-400); RDW Coefficient of Variation 14.8 % (11.5-14.5); RDW Standard Deviation 45.6 fL (36.4-46.3); White Blood Count 15.48 K/uL (4.8-10.8)
[2018-03-08] MEDS: SIMETHICONE 80 MG CHEW PO SCH ×4 (09:48→20:58)
[2018-03-08] MEDS ORDERED: MEPERIDINE HCL 50 MG/ML CARP IV PRN (20:59)
[2018-03-08] MEDS ORDERED: DiphenhydrAMINE HCL 50 MG/ML VIAL IV PRN (20:59)
[2018-03-08] MEDS ORDERED: KETOROLAC 30 MG/ML VIAL IV PRN (20:59)
[2018-03-08] MEDS ORDERED: ONDANSETRON INJ 2 MG/ML 2 ML VIAL IV PRN (20:59)
[2018-03-08] MEDS: OXYCODONE/ACETAMINOPHEN 5mg/325mg TAB PO PRN (23:38)
[2018-03-08] MEDS: IBUPROFEN 600 MG TAB PO PRN (23:40)
--- NOTE | 2018-03-09 07:14 | Obstetrical Progress Note ---
Date of Service <Hay Ball DO - Last Filed: 03/09/18 07:14> March 09, 2018 Assessment & Plan <Hay Ball DO - Last Filed: 03/09/18 07:14> (1) delivery delivered: 32 y/o, , C/S at 38.6 weeks, O+, GBS- - POD#2 - Continue routine post- care - monitor and manage pain - encourage ambulation - states she would like to go home later this evening if medically cleared - discharge instructions reviewed (2) with 38 completed weeks gestation: Subjective <Hay Ball DO - Last Filed: 03/09/18 07:14> Ambulation: ambulating normally Voiding: no voiding problems Passing Gas:: Yes Diet Tolerance:: regular diet Feeding Type:: breast feeding Junito states she is doing well this morning. No fever, chills, chest pain, shortness of breath. Physical Exam <Hay Ball - Last Filed: 03/09/18 07:14> Vital Signs (Past 24 Hours) Last Vital Signs Temp 36.6 C 03/08/18 23:40 Pulse 87 03/08/18 23:40 Resp 20 03/08/18 23:40 BP 130/84 03/08/18 23:40 Pulse Ox 99 03/08/18 20:00 Constitutional WD/WN, vitals as above Respiratory normal respiratory effort, lungs clear to auscultation Cardiovascular Rate/Rhythm: regular rate and regular rhythm Heart Sounds: no murmur Gastrointestinal (Abdomen) Percussion/Palpation: abdomen soft; abdomen nontender surgical incision site is clean, dry, intact without signs of infection fundus is firm, non-tender 3cm below umbilicus Neurologic moves all extremities and awake Psychiatric A+Ox3, euthymic affect Results & Data <Hay Ball DO - Last Filed: 03/09/18 07:14> Laboratory Results Laboratory Results - last 24 hr 03/08/18 08:45 WBC 15.48 H RBC 4.00 L Hgb 11.1 L Hct 33.7 L MCV 84.3 MCH 27.8 MCHC 32.9 RDW Std Deviation 45.6 RDW Coeff of Darrell 14.8 H Plt Count 412 H MPV 9.4 Immature Gran % (Auto) 0.3 Neut % (Auto) 77.1 Lymph % (Auto) 15.4 [place] % (Auto) 6.4 Eos % (Auto) 0.7 Baso % (Auto) 0.1 Immature Gran # (Auto) 0.04 H Neut # (Auto) 11.93 H Lymph # (Auto) 2.39 [place] # (Auto) 0.99 H Eos # (Auto) 0.11 Baso # (Auto) 0.02 Medications Administered Docusate Sodium (Colace) 100 mg PO BID [facility] Stop: 04/06/18 22:54 Last Admin: 03/08/18 20:59 Dose: 100 mg Admin: 03/08/18 08:09 Dose: 100 mg Ferrous Sulfate (Feosol) 325 mg PO QAM [facility] Stop: 04/07/18 08:59 Last Admin: 03/08/18 08:56 Dose: 325 mg Lactated Ringer's (Lr) 1,000 mls @ 125 mls/hr IV .Q8H [facility] Stop: 04/06/18 22:54 Last Admin: 03/08/18 16:49 Dose: 125 mls/hr Infusion: 03/08/18 16:06 Dose: 125 mls/hr Admin: 03/08/18 08:06 Dose: 125 mls/hr Ibuprofen (Motrin) 600 mg PO Q4H PRN PRN Reason: Pain Stop: 04/06/18 22:54 Last Admin: 03/08/18 23:40 Dose: 600 mg Oxycodone/Acetaminophen (Percocet 5mg/325mg) 1 - 2 tab PO Q4H PRN PRN Reason: Pain Stop: 03/22/18 20:58 Last Admin: 03/08/18 23:38 Dose: 1 tab Prenat Multivit/Ashley/Iron/Folic Ac ( Vitamin) 1 tab PO QAM [facility] Stop: 04/07/18 08:59 Last Admin: 03/08/18 08:09 Dose: 1 tab Simethicone (Mylicon) 80 mg PO QID [facility] Stop: 04/06/18 22:54 Last Admin: 03/08/18 20:58 Dose: 80 mg Admin: 03/08/18 16:51 Dose: 80 mg Admin: 03/08/18 09:57 Dose: 80 mg Admin: 03/08/18 09:48 Dose: Not Given <Cheri Davila MD, FACOG - Last Filed: 03/09/18 08:44> Co-Signing Physician Notes Resident Physician Supervision Note: I interviewed and examined the patient. Discussed with Dr. Hay Ball and agree with findings and plan as documented in the note. Any exceptions or clarifications are listed here: [None] Documented By: Cheri Davila MD, FACOG
[2018-03-09] MEDS: IBUPROFEN 600 MG TAB PO PRN ×2 (07:31→13:01)
[2018-03-09] MEDS: OXYCODONE/ACETAMINOPHEN 5mg/325mg TAB PO PRN ×2 (07:31→13:02)
[2018-03-09 07:53] LABS: Hematocrit (blood only) 32.6 % (37-47); Hemoglobin 10.4 g/dL (12.0-16.0)
[2018-03-09] MEDS: FERROUS SULFATE 325 MG TAB PO SCH (09:13)
[2018-03-09] MEDS: PRENATAL VITAMIN 1 TAB PO SCH (09:13)
[2018-03-09] MEDS: SIMETHICONE 80 MG CHEW PO SCH (09:13)
--- NOTE | 2018-03-10 23:36 | Discharge Summary ---
ADMISSION DIAGNOSES: 1. Intrauterine at 38+ weeks. 2. Breech presentation. DISCHARGE DIAGNOSES: 1. Intrauterine at 38+ weeks. 2. Breech presentation. PROCEDURES: Primary lower transverse section. HISTORY OF PRESENT ILLNESS: The patient is a 32-year-old white female 1, para 0 with an intrauterine at 38 and 6/7 weeks who was discovered to be breech at our office and declined version. The patient presented to labor and delivery noting the onset of gross rupture of membranes this evening, clear fluid. Has had some intermittent contractions today and no vaginal bleeding. For the rest of patient's detailed history and physical, please see her provider history and physical. ASSESSMENT: This is a patient at 38 and 6/7 weeks with gross rupture of membranes and a baby presenting breech confirmed by ultrasound today. HOSPITAL COURSE: The patient was admitted. She underwent a primary low transverse section without difficulty to deliver a eduarda breech presentation baby with normal uterus, tubes, and ovaries bilaterally. The patient's postoperative course was uncomplicated. She was discharged to home on postoperative day #2. She voided after the removal of her Mejias catheter, ambulated without difficulty, tolerated regular diet, had her pain well controlled on oral pain medications. Her discharge H and H was 10.4 and 32.6. She was discharged with Percocet for pain and to return in 6 weeks for routine postoperative check.
== END 2018-03-09 13:05 | disposition home or self-care (01) | DRG 788 ==
LOC: OPB 18:32 → 4S1 18:44 → 4S2 23:29

== ENCOUNTER 2020-11-10 05:24 | Inpatient (IN) ==
--- NOTE | 2020-10-31 14:21 | Anesthesiology Consultation ---
Date of Service October 31, 2020 Assessment & Plan (1) Encounter for pre-operative examination: Chart Review Chart Review: Acceptable Risk for Surgery and Patient NOT seen in Pre Admission Testing Consults Requested none History Surgery Operation Date: 11/10/20 07:30 Proposed Procedures p Section in LD - Marline Anguiano MD s Post Tubal Ligation Labor & Deliv - Marline Anguiano MD Height/Weight Height: 5 ft 1 in Weight: 88.451 kg Allergies Allergy/AdvReac Type Severity Reaction Status Date / Time amoxicillin Allergy Intermediate Hives Verified 10/31/20 09:35 nickel Allergy Mild Rash Verified 10/31/20 09:35 Medications Home Medications Medication Instructions Recorded Confirmed Last Taken vit no.95-ferrous 1 tab PO QAM 03/02/18 10/31/20 03/07/18 09:00 fumarate 28 mg-folic acid 800 mcg tablet ( Multivitamins) famotidine 20 mg tablet 20 mg PO BID PRN 10/30/20 10/31/20 Unknown Past Medical History Medical History Anxiety GERD (gastroesophageal reflux disease) Hypertension HX OF (NO CURRENT MEDS) Past Family History Family History Other Adopted Past Surgical History Surgical History History of section X 1 History of cholecystectomy History of colonoscopy [place] teeth removed Social History Smoking Status: Former smoker tobacco type: cigarettes Smoking cigarettes per day: QUIT 9 MONTHS, 1 PACK PER 4 DAYS Do You Dip or Chew Tobacco: No Smoking End Date: 1 YEAR AGO Hx Alcohol Use: No Hx Substance Use: No substance use type: does not use
[2020-11-10] MEDS ORDERED: CITRIC ACID/SODIUM CITRATE 15 ML UDC PO SCH (06:00)
[2020-11-10] MEDS ORDERED: LACTATED RINGER'S 1,000 ML IV SCH (06:00)
[2020-11-10] MEDS ORDERED: CLINDAMYCIN 900 MG in DEXTROSE 5% 50 ML IV SCH (06:00)
[2020-11-10 06:13] LABS: Basophils # (auto) 0.01 K/uL (0-0.2); Basophils % (auto) 0.1 %; Eosinophils # (auto) 0.13 K/uL (0-0.5); Eosinophils % (auto) 0.9 %; Hematocrit (blood only) 35.6 % (37-47); Hemoglobin 11.7 g/dL (12.0-16.0); Immature Granulocytes # (auto) 0.04 K/uL (0.00-0.02); Immature Granulocytes % (auto) 0.3 %; Lymphocytes # (auto) 3.26 K/uL (1.2-3.4); Lymphocytes % (auto) 23.5 %; Mean Corpuscular Hemoglobin 26.7 pg (25-34); Mean Corpuscular Hgb Conc 32.9 g/dL (32-36); Mean Corpuscular Volume 81.1 fL (80-100); Mean Platelet Volume 9.3 fL (7.4-10.4); Monocytes # (auto) 0.83 K/uL (0.11-0.59); Neutrophils % (auto) 69.2 %; Platelet Count 453 K/uL (130-400); RDW Standard Deviation 41.1 fL (36.4-46.3); Red Blood Count 4.39 M/uL (4.2-5.4); White Blood Count 13.87 K/uL (4.8-10.8)
--- NOTE | 2020-11-10 07:23 | History & Physical Bridge Note ---
Date of Service November 10, 2020 History & Physical Bridge Note I have examined the patient, reviewed the History & Physical and in the interval since the performance of the History & Physical I have noted the following changes of clinical significance: no changes noted
[2020-11-10] MEDS ORDERED: ONDANSETRON INJ 2 MG/ML 2 ML VIAL IV PRN (07:32)
[2020-11-10] MEDS ORDERED: NALBUPHINE HCL INJ 10 MG/ML AMP IV PRN (07:32)
[2020-11-10] MEDS ORDERED: diphenhydrAMINE 50 MG/ML VIAL IV PRN (07:32)
[2020-11-10] MEDS ORDERED: LACTATED RINGER'S 500 ML IV PRN (07:32)
[2020-11-10] MEDS ORDERED: NALOXONE HCL 0.08 MG in SYRINGE 1.8 ML IV PRN (07:32)
[2020-11-10] MEDS ORDERED: NALOXONE HCL 0.4 MG/1 ML VIAL/CARP IV PRN (07:32)
[2020-11-10] MEDS ORDERED: ePHEDrine sulfate 50 MG/ML AMP IV PRN (07:32)
[2020-11-10] MEDS ORDERED: HYDROmorphone INJ 0.5 MG/0.5 ML SYR IV PRN (07:32)
[2020-11-10] MEDS ORDERED: NALOXONE HCL 1 MG in SODIUM CHLORIDE 0.9% 1000ML 1,000 ML IV PRN (07:32)
[2020-11-10] MEDS ORDERED: MoRPHine SULFATE PF 1 MG/ML 10 ML AMP/VIAL INT SPINAL ONE (07:32)
[2020-11-10 07:36] LABS: Appearance Urine Cloudy (Clear); Bacteria Urine Automated 2+ (Negative); Bilirubin Urine Negative (Negative); Blood Urine Negative (Negative); Color Urine Yellow; Epithelial Cell Urine Auto >30 /lpf (0-5); Glucose Urine UA Negative (Negative); Ketones Urine Negative (Negative); Leukocyte Esterase Urine 2+ (Negative); Nitrite Urine Negative (Negative); Protein Urine Trace (Negative); Specific Gravity Urine 1.019 (1.000-1.030); Urobilinogen Urine Negative (Negative); WBC Urine Automated >30 /hpf (0-5); pH Urine 5.5 (4.5-7.5)
[2020-11-10] MEDS ORDERED: MoRPHine SULFATE PF 1 MG/ML 10 ML AMP/VIAL ONE (07:37)
[2020-11-10] MEDS ORDERED: fentaNYL citrate 100 MCG/2 ML VIAL ONE (07:38)
[2020-11-10] MEDS ORDERED: OXYTOCIN 10 UNITS/ML VIAL ONE ×2 (07:42→08:26)
[2020-11-10] MEDS ORDERED: DC INTRASPINAL MORPHINE SCH (07:45)
[2020-11-10] MEDS ORDERED: NO NARCOTICS OR SEDATIVES SCH (07:45)
[2020-11-10] MEDS ORDERED: SODIUM CHLORIDE 0.9% 1000ML 1,000 ML IV SCH (07:45)
[2020-11-10 07:53] LABS: Cast Urine Automated >30 /lpf (0-5)
[2020-11-10 07:55] LABS: RBC Urine Automated 0-4 /hpf (0-4)
[2020-11-10] MEDS ORDERED: PHENYLEPHRINE 100MCG/ML 5ML SYR ONE ×2 (08:08→08:47)
[2020-11-10] MEDS ORDERED: ONDANSETRON INJ 2 MG/ML 2 ML VIAL ONE (08:10)
--- NOTE | 2020-11-10 09:01 | Operative Report ---
PG Post Operative Report Pre & Post Diagnosis Operation Date: 11/10/20 07:30 Pre-Op Diagnosis: History of caesarean section Desires repeat caesarean section with sterilization Post-Op Diagnosis: Same as pre-op I identified the patient and participated in the time-out.: Yes Procedure Operation Date: 11/10/20 07:30 Actual Procedures Repeat low transverse section with bilateral tubal ligation Surgeon Marline Anguiano MD Jewel Diameter Gauger Nneka HANNA Estimated Blood Loss 600 Findings Consistent with Post-Op Diagnosis Specimens Placenta, cord blood Anesthesia Type Spinal Complications none Disposition Accompanied Patient To Recovery: Yes Disposition: L&D Description of Procedure The patient was placed operating table in the supine position with a leftward tilt. She was prepped and draped in standard sterile fashion. The anesthetic was tested and found to be adequate. A time-out was held, identifying correct patient, procedure, positioning and preoperative antibiotics. There were no concerns. A Pfannenstiel skin incision was made with a knife and taken down to the underlying layer of fascia. The fascia was incised in the midline with the knife and taken out laterally with scissors. The superior edge of the fascial incision was grasped, elevated and dissected off the underlying rectus both superiorly and inferiorly. The muscles were bluntly in the midline. The peritoneum was entered bluntly. The incision was then stretched. The bladder retractor was placed. The vesicouterine peritoneum was identified, entered with scissors and taken out laterally with scissors. The bladder flap was created digitally. A hysterotomy incision was created transversely in the lower uterine segment, final entry being accomplished in a blunt manner with the wind up operator's fingers. Clear amniotic fluid was encountered. The wind up operator's hand was used to elevate the head to the hysterotomy. The head was delivered using mild fundal pressure, and the shoulders and body followed without difficulty. The cord was clamped and cut and the was then handed off to the awaiting industrial service technician. Cord blood was obtained. The placenta was Manually extracted. The uterus was exteriorized and cleared of all clot and debris with moistened laparotomy sponges. The hysterotomy incision was repaired in two layers, the first in a running locked layer, the second in an imbricating layer. The ovaries and tubes were seen to be normal bilaterally. Bilateral modified Barney procedure was performed to sterilize after verbal confirmation of consent; 0-chromic was used to doubly ligate each tube after which a knuckle was excised and sent for path. The uterus was gently replaced in the abdomen, and the gutters were cleared of clot and debris. A final inspection of the hysterotomy revealed good hemostasis and a peek at each tubal ligation site showed stability of the sutures. The rectus muscles were allowed to reapproximate naturally. The fascia was then reapproximated with 1 Vicryl in a running nonlocked manner. The fascia was examined and found to be free of defect following closure. The subcutaneous tissue was copiously irrigated and reapproximated with 0-chromic, then the skin edges were closed with 4-0 monocryl in a subcuticular fashion. A dermabond dressing was applied. The michelle was found to be draining clear yellow urine at completion of the procedure. I attest to the content of the Intraoperative Record and any orders documented therein. Any exceptions are noted below. I attest to the content of the Intraoperative Record and any orders documented therein. Any exceptions are noted below.
--- NOTE | 2020-11-10 10:24 | Anesthesiology Progress Note ---
Date of Service November 10, 2020 Anesthesia Post Procedure Vital Signs Vital Signs: Temp Pulse Resp BP Pulse Ox 11/10/20 10:20 82 98 11/10/20 10:18 84 115/65 11/10/20 10:15 77 98 11/10/20 10:14 80 90 11/10/20 10:09 85 99 11/10/20 10:08 83 113/57 L 11/10/20 10:04 80 98 11/10/20 09:59 84 99 11/10/20 09:58 81 111/63 11/10/20 09:57 20 11/10/20 09:54 82 97 11/10/20 09:50 84 113/59 L 11/10/20 09:49 83 99 11/10/20 09:47 20 11/10/20 09:44 85 98 11/10/20 09:39 87 97 11/10/20 09:38 90 105/53 L 11/10/20 09:37 20 11/10/20 09:34 90 98 11/10/20 09:29 88 97 11/10/20 09:28 86 108/58 L 11/10/20 09:27 20 11/10/20 09:24 86 97 11/10/20 09:19 85 98 11/10/20 09:18 93 H 100/59 L 11/10/20 09:17 20 11/10/20 09:14 89 96 11/10/20 09:09 90 95 11/10/20 09:07 36.5 C 89 20 92/55 L 94 11/10/20 09:04 90 96 11/10/20 07:40 92 H 99 11/10/20 07:35 93 H 99 11/10/20 07:30 85 100 11/10/20 07:25 85 100 11/10/20 05:39 37 C 18 11/10/20 05:38 89 127/76 Pain Intensity Lower Abdomen: Pain Intensity: 1 Transfer of Care Handoff Completed per policy Notes Mental Status: alert / awake / arousable Patient Amnestic to Procedure: Yes Nausea / Vomiting: adequately controlled Pain: adequately controlled Airway Patency, RR, SpO2: stable & adequate BP & HR: stable & adequate Hydration State: stable & adequate Neuraxial Anesthesia: was administered and sensory block is resolving Anesthetic Complications: no major complications apparent and Pt Satisfied with anesthetic care
[2020-11-10] MEDS ORDERED: OXYTOCIN 30 UNITS in LACTATED RINGER'S 1,000 ML IV SCH (10:36)
[2020-11-10] MEDS ORDERED: HYDROCORTISONE ACETATE 25 MG SUPP PR PRN (10:36)
[2020-11-10] MEDS ORDERED: SENNA 8.6 MG TAB PO PRN (10:36)
[2020-11-10] MEDS ORDERED: MAGNESIUM HYDROXIDE SUSP 30 ML UDC PO PRN (10:36)
[2020-11-10] MEDS ORDERED: BENZOCAINE 20% AER SPR 82.5 GM CAN EXT PRN (10:36)
[2020-11-10] MEDS ORDERED: DIPHTHERIA/TETANUS/PERTUSSIS 0.5 ML SYR/VIAL IM ONE (10:36)
[2020-11-10] MEDS ORDERED: SUPERCREAM 0.870% 15 GM JAR EXT PRN (10:36)
[2020-11-10] MEDS: KETOROLAC 30 MG/ML VIAL IV PRN ×2 (11:32→17:43)
[2020-11-10] MEDS: SIMETHICONE 80 MG CHEW PO SCH ×3 (14:50→20:39)
[2020-11-10] MEDS: DOCUSATE SODIUM 100 MG CAP PO SCH (20:39)
[2020-11-10] MEDS: LACTATED RINGER'S 1,000 ML IV SCH (20:40)
[2020-11-11] MEDS: KETOROLAC 30 MG/ML VIAL IV PRN (00:05)
[2020-11-11] MEDS ORDERED: ONDANSETRON INJ 2 MG/ML 2 ML VIAL IV PRN (01:32)
[2020-11-11] MEDS ORDERED: KETOROLAC 30 MG/ML VIAL IV PRN (01:32)
[2020-11-11] MEDS ORDERED: MEPERIDINE HCL 50 MG/ML CARP IV PRN (01:32)
[2020-11-11] MEDS ORDERED: diphenhydrAMINE Capsule 25 MG CAP PO PRN (01:32)
[2020-11-11] MEDS ORDERED: PROMETHAZINE HCL 25 MG in SODIUM CHLORIDE 0.9% 50 ML IV PRN (01:32)
[2020-11-11] MEDS ORDERED: oxyCODONE/ACETAMINOPHEN 5mg/325mg TAB PO PRN (01:32)
[2020-11-11] MEDS ORDERED: diphenhydrAMINE 50 MG/ML VIAL IV PRN (01:32)
[2020-11-11] MEDS: IBUPROFEN 600 MG TAB PO PRN ×4 (06:27→20:47)
[2020-11-11 07:03] LABS: Basophils # (auto) 0.01 K/uL (0-0.2); Basophils % (auto) 0.1 %; Eosinophils # (auto) 0.16 K/uL (0-0.5); Eosinophils % (auto) 1.3 %; Hematocrit (blood only) 30.3 % (37-47); Hemoglobin 9.8 g/dL (12.0-16.0); Immature Granulocytes # (auto) 0.03 K/uL (0.00-0.02); Immature Granulocytes % (auto) 0.2 %; Lymphocytes # (auto) 2.56 K/uL (1.2-3.4); Mean Corpuscular Hemoglobin 26.6 pg (25-34); Mean Corpuscular Hgb Conc 32.3 g/dL (32-36); Mean Corpuscular Volume 82.1 fL (80-100); Mean Platelet Volume 9.5 fL (7.4-10.4); Monocytes # (auto) 0.95 K/uL (0.11-0.59); Monocytes % (auto) 7.4 %; Neutrophils # (auto) 9.09 K/uL (1.4-6.5); Platelet Count 363 K/uL (130-400); RDW Coefficient of Variation 14.3 % (11.5-14.5); RDW Standard Deviation 42.7 fL (36.4-46.3); Red Blood Count 3.69 M/uL (4.2-5.4)
[2020-11-11] MEDS: LACTATED RINGER'S 1,000 ML IV SCH (07:27)
--- NOTE | 2020-11-11 08:23 | Obstetrical Progress Note ---
Date of Service November 11, 2020 Assessment & Plan (1) Status post section: Plan: 35yo POD 1 s/p LTCS -Continue routine care, stable, possible discharge tomorrow -Vitals reviewed- HDS, afebrile -Encourage ambulation, regular diet Admission and Anticipated Discharge Date Admission Date: November 10, 2020 Supervising Physician Co-Signing Physician Notes Resident Physician Supervision Note: I interviewed and examined the patient. Discussed with Dr. Palmer and agree with findings and plan as documented in the note. Any exceptions or clarifications are listed here: [ ] Documented By: Marline Anguiano MD, FACOG Subjective POD 1 s/p with tubal ligation. Patient seen and examined at bedside. Reports no acute overnight events. Ambulating w/o complaints. Has passed gas, not yet stool. Breast and bottle feeding. Regular diet with no N/V. Review of Systems Review of Systems: Denies fevers/chills. Denies dyspnea, cough. Denies chest pain. Denies breast pain or discharge. Denies dysuria. Denies headache. Denies back pain. Physical Exam Physical Exam: General: Alert, oriented, no acute distress Cardiac: Regular rate and rhythm, normal S1, S2. No murmurs appreciated. Respiratory: Clear to auscultation b/l with good air flow entry, symmetric chest rise and fall. No wheezes or crackles. No increased work of breathing or accessory muscle use Abdomen: Soft, nondistended, mildly TTP. Fundus firm and palpable at 1 cm below umbilicus. Surgical incision clean, dry and intact without erythema, warmth or drainage. Bowel sounds appreciated. No guarding or rebound. Skin: No rashes or lesions Extremities: Warm, dry, well-perfused with capillary refill <2s b/l. No lower extremity edema, erythema or swelling. Negative Shea's sign b/l. Results & Data ([facility]) Vital Signs (Past 12 Hours) Vital Signs Temp Pulse Resp BP BP Pulse Ox 11/11/20 03:45 36.6 C 76 18 101/66 97 11/11/20 02:00 16 96 11/11/20 00:40 18 99 11/11/20 00:00 36.6 C 80 18 109/72 96 11/10/20 22:45 16 95 11/10/20 21:45 16 97 09/13/21 20:45 16 98 Resident Activity Tracking Resident Involvement: Resident Care Provided Care Provided: OB Delivery
[2020-11-11] MEDS: DOCUSATE SODIUM 100 MG CAP PO SCH ×2 (08:28→20:47)
[2020-11-11] MEDS: PRENATAL VITAMIN 1 TAB PO SCH (08:28)
[2020-11-11] MEDS: FERROUS SULFATE 325 MG TAB PO SCH (08:28)
[2020-11-11] MEDS: SIMETHICONE 80 MG CHEW PO SCH ×3 (08:28→20:47)
[2020-11-12] MEDS: IBUPROFEN 600 MG TAB PO PRN ×3 (00:43→09:45)
[2020-11-12 06:39] LABS: Hematocrit (blood only) 32.7 % (37-47); Hemoglobin 10.4 g/dL (12.0-16.0)
--- NOTE | 2020-11-12 07:53 | Obstetrical Progress Note ---
Date of Service November 12, 2020 Assessment & Plan (1) Status post section: Plan: 35yo POD 2 s/p LTCS at 39 weeks. -Continue routine care -Vitals reviewed- HDS, afebrile -Encourage ambulation, regular diet -Pain control with ibuprofen, acetaminophen PRN -Encourage -Hgb 11.7 --> 9.8 -likely discharge today, f/u in 6 weeks with OB after discharge Admission and Anticipated Discharge Date Admission Date: November 10, 2020 Supervising Physician Co-Signing Physician Notes Resident Physician Supervision Note: I interviewed and examined the patient. Discussed with Dr. Palmer and agree with findings and plan as documented in the note. Any exceptions or clarifications are listed here: [None] Documented By: Cheri Davila MD, FACOG Subjective POD 2 s/p LCTS with tubal ligation. Patient seen and examined at bedside. Reports no acute overnight events. Ambulating and voiding. Passing gas and stool. Regular diet w/o N/V. Breast and bottle feeding. Minimal abdominal and breast tenderness, improving. Review of Systems Review of Systems: Denies fevers/chills. Denies dyspnea, cough. Denies chest pain. Denies dysuria. Denies headache. Denies back pain. Physical Exam Physical Exam: General: Alert, oriented, no acute distress Cardiac: Regular rate and rhythm, normal S1, S2. No murmurs appreciated. Respiratory: Clear to auscultation b/l with good air flow entry, symmetric chest rise and fall. No wheezes or crackles. No increased work of breathing or accessory muscle use Abdomen: Soft, nondistended, mildly TTP. Fundus firm and palpable at 2 cm below umbilicus. Surgical incision clean, dry and intact without erythema, warmth or drainage. Bowel sounds appreciated. No guarding or rebound. Skin: No rashes or lesions Extremities: Warm, dry, well-perfused with capillary refill <2s b/l. No lower extremity edema, erythema or swelling. Negative Shea's sign b/l. Results & Data ([facility]) Vital Signs (Past 12 Hours) Vital Signs Temp Pulse Resp BP Pulse Ox 11/12/20 00:35 36.9 C 78 18 120/83 98 11/11/20 20:50 36.7 C 82 16 122/74 98 Resident Activity Tracking Resident Involvement: Resident Care Provided Care Provided: Adult [facility] Medicine
[2020-11-12] MEDS: DOCUSATE SODIUM 100 MG CAP PO SCH (08:43)
[2020-11-12] MEDS: PRENATAL VITAMIN 1 TAB PO SCH (08:43)
[2020-11-12] MEDS: SIMETHICONE 80 MG CHEW PO SCH (08:43)
[2020-11-12] MEDS: FERROUS SULFATE 325 MG TAB PO SCH (08:43)
--- NOTE | 2020-11-14 12:40 | Discharge Summary ---
Date of Service November 14, 2020 Discharge Data Consultations 11/10/20 05:28 Consult Anesthesiology Stat Procedures Performed Operation Date: 11/10/20 07:30 Actual Procedures p Section in LD ; Live female child at 0823 (Main OR#3)(Bilateral) - Marline Anguiano MD s with Bilateral Tubal Ligation(Bilateral) - Marline Anguiano MD Hospital Course (1) Previous delivery affecting , antepartum: Repeat and tubal; unremarkable post op course, discharged home at typical interval with 6wk f/u plan. Coding Level of Care Code None Diagnoses Previous delivery affecting , antepartum O34.219
--- NOTE | 2020-11-18 09:24 | Coding Query ---
CODING QUERY To promote full compliance with coding requirements relating to patient care, provider participation is requested in all cases of director automotive uncertainty. Please assist us with the question(s) below: Coding Question(s): The Anesthesia Consultation and Anesthesia Record document a history of Hypertension with patient not on medication, however, there is no documentation on attending notes. Please specify below, in your clinical opinion. ( ) complicated by Hypertension (X ) not complicated by Hypertension ( ) Other: Please Specify Physician's Response(s): Patient had HTN in *prior* thus it remained on her history. However she had NO HYPERTENSION issues during the current / relevant . Thank you Olinda Mercer Principal Diagnosis: "that condition established after study, to be chiefly responsible for occasioning the admission of the patient to the hospital for care." Co-Existing Principal Diagnosis: "when two or more diagnoses equally meet the criteria for principal diagnosis as determined by the circumstances of admission, diagnostic work up, and/or therapy provided, and the Alphabetic Index, Tabular List, or another coding guideline does not provide sequencing direction, any one of the diagnoses may be sequenced first." "When the physician has documented what appears to be a current diagnosis in the body of the record, but has not included the diagnosis in the final diagnostic statement, the physician should be asked whether the diagnosis should be added." (Source [facility]oding [facility] 2 QTR90. p3-4) LAURIE
== END 2020-11-12 11:15 | disposition home or self-care (01) | DRG 785 ==
LOC: 4S1 05:24 → EDSTATUS 07:30 → 4S2 11:31
PROC: M.PPTLD (2020-11-10 07:30)
DX: Z91.048 Other nonmedicinal substance allergy status; Z87.891 Personal history of nicotine dependence; Z79.899 Other long term (current) drug therapy; O34.211 Maternal care for low transverse scar from previous cesarean delivery; Z88.0 Allergy status to penicillin; Z37.0 Single live birth; Z30.2 Encounter for sterilization; Z3A.39 39 weeks gestation of pregnancy